=== PATIENT | female | born 1985 | race Caucasian/White ===

== ENCOUNTER 2017-06-12 10:05 | Emergency (ER) | payer SELFPAY ==
[2017-06-12 10:24] VITALS: BMI 26.4
[2017-06-12 10:26] VITALS: RESP 18
[2017-06-12 11:07] VITALS: PULSE 80
--- NOTE | 2017-06-12 12:18 | C.PDOC ---
History Of Present Illness 32 y/o French female presents to the ER complaining of left arm and finger pain which has been present for the past year. Patient reports that the pain radiates to her left shoulder and neck. Patient states that the pain is constant and the pain increases with movement. She reports that she does not carry a heavy bag on her left shoulder. Patient denies any fever, chills, nausea , vomiting, and trauma.Patient states that she was seen in [facility] last year and they performed surgery on her left wrist for "venous obstruction." Patient reports that she did not take any medications and the symptoms never resolved.Of note, patient reports that she is no longer . Time Seen by Provider: 06/12/17 10:48 Chief Complaint (Nursing): Chest Pain History Per: Patient History/Exam Limitations: no limitations Onset/Duration Of Symptoms: Days Current Symptoms Are (Timing): Still Present Severity: Moderate Past Medical History Reviewed: Historical Data, Nursing Documentation, Vital Signs Vital Signs: Last Vital Signs Temp 98.1 F 06/12/17 13:28 Pulse 80 06/12/17 13:28 Resp 18 06/12/17 13:28 BP 109/79 06/12/17 13:28 Pulse Ox 99 06/12/17 14:46 - Medical History PMH: Hypercholesterolemia Surgical History: No Surg Hx Family History: States: No Known Family Hx - Social History Hx Alcohol Use: No Hx Substance Use: No - Immunization History Hx Tetanus Toxoid Vaccination: No Hx Influenza Vaccination: No Hx Pneumococcal Vaccination: No Review Of Systems Except As Marked, All Systems Reviewed And Found Negative. Constitutional: Negative for: Fever, Chills Gastrointestinal: Negative for: Nausea, Vomiting, Diarrhea Musculoskeletal: Positive for: Arm Pain (left arm pain), Hand Pain (fingers of left hand) Physical Exam - Physical Exam Appears: Non-toxic, No Acute Distress, Other (awake,alert, in physical pain) Skin: Normal Color, Warm Head: Atraumatic, Normacephalic Eye(s): bilateral: Normal Inspection, PERRL Nose: Normal Oral Mucosa: Moist Neck: Supple, Other (muscle spasm along left teapezius) Chest: Symmetrical, Other (muscle spasm in chest wall) Cardiovascular: Rhythm Regular Respiratory: Normal Breath Sounds, No Accessory Muscle Use Gastrointestinal/Abdominal: Normal Exam, Soft, No Tenderness Back: No CVA Tenderness, Muscle Spasm (muscular spasm along the trapezius muscle and medial aspect of the scapula) 1 - muscle spasm Extremity: Normal ROM, No Pedal Edema Extremity: Bilateral: Atraumatic Neurological/Psych: Oriented x3, Normal Speech, Normal Cognition, Normal Motor, Normal Sensation ED Course And Treatment ECG: Interpreted By Me, Viewed By Me ECG Rhythm: Sinus Rhythm Interpretation Of ECG: no ST elevations/ depressions Rate From EC O2 Sat by Pulse Oximetry: 99 (RA) Pulse Ox Interpretation: Normal Progress Note: Patient is feeling better. Patient's will pick her up. Medical Decision Making Medical Decision Making: Plan: --Motrin 600 mg PO --Valium 5 mg PO --Tylenol 975 mg PO Disposition Counseled Patient/Family Regarding: Diagnosis, Need For Followup, Rx Given - Disposition Referrals: [facility] at [facility] [Outside] Disposition: HOME/ ROUTINE Disposition Time: 13:03 Condition: STABLE Additional Instructions: Follow up in clinic. Take medications as indicated. Don't drive while taking Valium. You were diagnosed with muscle spasm, please follow up to determin the underlying cause. Prescriptions: diaZEpam [Valium] 5 mg PO TID #12 tab Ibuprofen [Motrin] 600 mg PO TID #15 tab Instructions: Muscle Spasm (ED) Forms: General Discharge Instructions, [facility] ([place]), Work Excuse - POA Present On Arrival: None - Clinical Impression Clinical Impression: Muscle spasm of back - Scribe Statement The provider has reviewed the documentation as recorded by the Krista Wilson Provider Attestation: All medical record entries made by the Leslieibe were at my direction and personally dictated by me. I have reviewed the chart and agree that the record accurately reflects my personal performance of the history, physical exam, medical decision making, and the department course for this patient. I have also personally directed, reviewed, and agree with the discharge instructions and disposition.
[2017-06-12 13:28] VITALS: BP 109/79; TEMP 98.1
[2017-06-12 14:42] VITALS: O2SAT 99
--- NOTE | 2017-06-14 12:15 | CARD ---
APPROVED REPORT EKG Measurement Heart [id number] <Conclusion> Normal sinus rhythm Normal ECG
== END 2017-06-12 13:28 | disposition home or self-care (01) ==
LOC: C.ER 10:05
DX: M62.830 Muscle spasm of back (principal); E78.00 Pure hypercholesterolemia, unspecified

== ENCOUNTER 2017-11-05 13:28 | Emergency (ER) | payer OTHER ==
[2017-11-05 13:29] VITALS: BMI 26.4
[2017-11-05] MEDS ORDERED: Sodium Chloride 0.9% 1,000 ML IV ONE (14:24)
[2017-11-05 15:09] LABS: SQUAMOUS EPITHIAL 8 /hpf (0-5); URINE BACTERIA RARE (<OCC); URINE BILIRUBIN NEGATIVE (NEGATIVE); URINE BLOOD NEGATIVE (NEGATIVE); URINE CLARITY Clear (Clear); URINE COLOR Straw (YELLOW); URINE GLUCOSE (UA) NORMAL (Normal); URINE LEUKOCYTE ESTERASE NEG Leu/uL (Negative); URINE PROTEIN NEGATIVE (NEGATIVE); URINE UROBILINOGEN NORMAL mg/dL (0.2-1.0)
--- NOTE | 2017-11-05 15:57 | CT ---
PROCEDURE: CT HEAD WITHOUT CONTRAST. HISTORY: seizure COMPARISON: None available. TECHNIQUE: Axial computed tomography images were obtained through the head/brain without intravenous contrast. Radiation dose: Total exam DLP = 873 mGy-cm. This CT exam was performed using one or more of the following dose reduction techniques: Automated exposure control, adjustment of the mA and/or kV according to patient size, and/or use of iterative reconstruction technique. FINDINGS: HEMORRHAGE: No intracranial hemorrhage. BRAIN: No mass effect or edema. No atrophy or chronic microvascular ischemic changes. VENTRICLES: Unremarkable. No hydrocephalus. CALVARIUM: Unremarkable. PARANASAL SINUSES: Unremarkable as visualized. No significant inflammatory changes. MASTOID AIR CELLS: Unremarkable as visualized. No inflammatory changes. OTHER FINDINGS: None. IMPRESSION: No acute intracranial abnormality. If symptoms persist, consider correlation with MRI.
[2017-11-05] MEDS ORDERED: Sodium Chloride 0.9% 1,000 ML ONE (16:04)
[2017-11-05 16:11] LABS: BASO # 0.1 K/uL (0.0-0.2); BASO % 0.8 % (0.0-2.0); EOS % 0.4 % (0.0-4.0); HEMOGLOBIN 12.2 g/dL (11.0-16.0); LYMPH # 2.4 K/uL (1.0-4.3); LYMPH % 24.4 % (20.0-40.0); MEAN CELL VOLUME 80.1 fL (81.0-99.0); MEAN CORPUSCULAR HEMOGLOBIN 27.1 pg (27.0-31.0); MEAN CORPUSCULAR HGB CONC 33.8 g/dL (33.0-37.0); MEAN PLATELET VOLUME 7.4 fL (7.2-11.7); MONO # 0.4 K/uL (0.0-0.8); MONO % 4.1 % (0.0-10.0); NEUT # 6.9 K/uL (1.8-7.0); NEUT % 70.3 % (50.0-75.0); NRBC % 0.2 % (0.0-2.0); RBC 4.52 Mil/uL (3.80-5.20); RED CELL DISTRIBUTION WIDTH 13.5 % (11.5-14.5); WHITE BLOOD COUNT 9.8 K/uL (4.8-10.8)
[2017-11-05 16:21] LABS: ALBUMIN 3.9 g/dL (3.5-5.0); ALT/SGPT 28 U/L (9-52); AST/SGOT 25 U/L (14-36); BLOOD UREA NITROGEN 14 mg/dL (7-17); CALCIUM 9.3 mg/dl (8.6-10.4); GFR AFRICAN-AMERICAN > 60; GFR NON-AFRICAN AMERICAN > 60
--- NOTE | 2017-11-05 16:43 | C.PDOC ---
History Of Present Illness 32 y/o female presents to the ER complaining of dizziness which has been present for the past 1 day. Patient reports that the dizziness is worse with movement and improved with lying still.Patient states that she has associated nausea and vomiting. Otherwise, patient denies having CP,SOB,cough, fever, and chills. Time Seen by Provider: 11/05/17 14:10 Chief Complaint (Nursing): Dizziness/Lightheaded History Per: Patient History/Exam Limitations: no limitations Onset/Duration Of Symptoms: Days Current Symptoms Are (Timing): Still Present Severity: Moderate Past Medical History Reviewed: Historical Data, Nursing Documentation, Vital Signs Vital Signs: Last Vital Signs Temp 97.4 F L 11/05/17 13:35 Pulse 70 11/05/17 13:35 Resp 20 11/05/17 13:35 BP 112/79 11/05/17 13:35 Pulse Ox 100 11/05/17 16:52 - Medical History PMH: Hypercholesterolemia Other Surgeries: Hx of surgeries Family History: States: No Known Family Hx - Social History Hx Alcohol Use: No Hx Substance Use: No - Immunization History Hx Tetanus Toxoid Vaccination: No Hx Influenza Vaccination: No Hx Pneumococcal Vaccination: No Review Of Systems Except As Marked, All Systems Reviewed And Found Negative. Constitutional: Negative for: Fever, Chills Cardiovascular: Negative for: Chest Pain Respiratory: Negative for: Cough, Shortness of Breath Gastrointestinal: Positive for: Nausea, Vomiting Neurological: Positive for: Dizziness Physical Exam - Physical Exam Appears: Non-toxic, No Acute Distress Skin: Normal Color, Warm, Dry Head: Atraumatic, Normacephalic Eye(s): bilateral: Normal Inspection Nose: Normal Oral Mucosa: Moist Neck: Supple Chest: Symmetrical Cardiovascular: Rhythm Regular Respiratory: Normal Breath Sounds, No Rales, No Rhonchi, No Wheezing Gastrointestinal/Abdominal: Normal Exam, Soft, No Tenderness, No Guarding, No Rebound Neurological/Psych: Oriented x3, Normal Speech ED Course And Treatment - Laboratory Results Result Diagrams: 11/05/17 16:02 11/05/17 15:55 Urine POC: Negative ECG: Interpreted By Me, Viewed By Me ECG Rhythm: Sinus Rhythm Interpretation Of ECG: NSR with normal intervals, normal axises, and no ST/ T wave abnormalities Rate From EC O2 Sat by Pulse Oximetry: 100 (RA) Pulse Ox Interpretation: Normal Medical Decision Making Medical Decision Making: Assessment: Dizziness Plan: --Labs --UA -- POC Urine Test --Antivert PO --Sudafed PO --Zofran IV --IV Fluids patient reevaluated at 1657 and states resolution of symptoms I will discharge home to follow up with pmd in 2 days return to ER if symptoms worsens or progress Disposition Counseled Patient/Family Regarding: Studies Performed, Diagnosis, Need For Followup, Rx Given - Disposition Referrals: [facility] at [facility] [Outside] Disposition: HOME/ ROUTINE Disposition Time: 16:58 Condition: IMPROVED Additional Instructions: follow up with your doctor or medical clinic within 2 days call to make an appointment continue medications at home as needed return to ER if symptoms worsens or progress Prescriptions: Meclizine [Meclizine*] 25 mg PO TID PRN #15 tab PRN Reason: Dizziness Ondansetron ODT [Zofran ODT] 4 mg PO TID PRN #12 odt PRN Reason: Nausea/Vomiting Instructions: Vertigo (a Type of Dizziness) Forms: [facility] ([place]), General Discharge Instructions, Work Excuse - Clinical Impression Clinical Impression: Dizziness - Scribe Statement The provider has reviewed the documentation as recorded by the Krista Wilson Provider Attestation: All medical record entries made by the Krista were at my direction and personally dictated by me. I have reviewed the chart and agree that the record accurately reflects my personal performance of the history, physical exam, medical decision making, and the department course for this patient. I have also personally directed, reviewed, and agree with the discharge instructions and disposition.
[2017-11-05 17:49] VITALS: BP 136/72; PULSE 78; RESP 18; TEMP 98; O2SAT 98
--- NOTE | 2017-11-08 12:19 | CARD ---
APPROVED REPORT EKG Measurement Heart [id number] [id number] <Conclusion> Normal sinus rhythm Normal ECG
== END 2017-11-05 17:49 | disposition home or self-care (01) ==
LOC: C.ER 13:28
DX: R42 Dizziness and giddiness (principal); E78.00 Pure hypercholesterolemia, unspecified
CPT/HCPCS: 70450; 80053; 81001; 85025; 96374; 99285; J2405; J7030

== ENCOUNTER 2018-09-30 11:06 | Outpatient (CLI) | payer OTHER | END 2018-09-30 11:07 | disposition home or self-care (01) | LOC: C.LAB 11:06 | DX: R73.01 Impaired fasting glucose (principal); E78.2 Mixed hyperlipidemia ==

== ENCOUNTER 2018-10-08 09:31 | Outpatient (CLI) | payer OTHER | END 2018-10-08 09:32 | disposition home or self-care (01) | LOC: C.USIC 09:32 ==

== ENCOUNTER 2018-10-08 10:29 | Emergency (ER) | payer OTHER ==
[2018-10-08 10:30] VITALS: BMI 26.4
[2018-10-08 10:46] VITALS: RESP 20
--- NOTE | 2018-10-08 11:11 | C.PDOC ---
History Of Present Illness 33 year old female presents to the ED complaining of LLQ pain associated with vomiting for one day. States it feels like "something is moving". Denies any fever, chills, diarrhea, constipation, urinary symptoms, back pain, shortness of breath, or chest pain. Reports she had a normal bowel movement this morning. Time Seen by Provider: 10/08/18 10:58 Chief Complaint (Nursing): Abdominal Pain History Per: Patient History/Exam Limitations: no limitations Onset/Duration Of Symptoms: Days Current Symptoms Are (Timing): Still Present Location Of Pain/Discomfort: LLQ Quality Of Discomfort: "Pain", Other ("Something is moving" ) Associated Symptoms: Vomiting. denies: Fever, Chills, Diarrhea, Back Pain, [place] Pain, Urinary Symptoms Past Medical History Reviewed: Historical Data, Nursing Documentation, Vital Signs Vital Signs: Last Vital Signs Temp 97.8 F 10/08/18 10:41 Pulse 81 10/08/18 10:41 Resp 20 10/08/18 10:41 BP 117/82 10/08/18 10:41 Pulse Ox 98 10/08/18 10:41 Primary Care Provider: FAMILY PROVIDER,NO - Medical History PMH: Hypercholesterolemia Other Surgeries: Hx of surgeries Family History: States: No Known Family Hx - Social History Hx Alcohol Use: No Hx Substance Use: No - Immunization History Hx Tetanus Toxoid Vaccination: No Hx Influenza Vaccination: No Hx Pneumococcal Vaccination: No Review Of Systems Constitutional: Negative for: Fever, Chills Cardiovascular: Negative for: Chest Pain Respiratory: Negative for: Cough, Shortness of Breath Gastrointestinal: Positive for: Vomiting, Abdominal Pain. Negative for: Diarrhea, Constipation Genitourinary: Negative for: Dysuria, Hematuria Musculoskeletal: Negative for: Back Pain Physical Exam - Physical Exam Appears: Non-toxic, No Acute Distress Skin: Warm, Dry, No Rash Head: Normacephalic Eye(s): bilateral: Normal Inspection, PERRL, EOMI Nose: Normal Oral Mucosa: Moist Neck: Supple Chest: Symmetrical Cardiovascular: Rhythm Regular Respiratory: Normal Breath Sounds, No Rales, No Rhonchi, No Wheezing Gastrointestinal/Abdominal: Soft, Tenderness (LLQ), No Distention, Guarding, No Rebound Back: No CVA Tenderness Neurological/Psych: Oriented x3, Normal Speech Gait: Steady ED Course And Treatment - Laboratory Results Result Diagrams: 10/08/18 11:37 10/08/18 11:37 O2 Sat by Pulse Oximetry: 98 (RA) Pulse Ox Interpretation: Normal - CT Scan/US CT abd/pel Other Rad Studies (CT/US): Read By Radiologist, Radiology Report Reviewed CT/US Interpretation: Accession No. : [id number]. Patient Name / ID : VINICIO GUPTA / [id number]. Exam Date : 10/08/2018 13:01:25 ( Approved ). Study Comment : Sex / Age : F / 33Y. Creator : Bruna Villalta. Dictator : Grayson Myers MD. Clarity Developer : Patient Care Assistant : Grayson Myers MD. Approver2 : Report Date : 10/08/2018 13:36:41. My Comment : . Date of service: 10/08/2018. PROCEDURE: CT Abdomen and Pelvis with contrast. HISTORY: lower abd pain, L>R, vomiting. COMPARISON: Not available. TECHNIQUE: Contrast dose: 100 mL Visipaque 320. Radiation dose: Total exam DLP = 651.24 mGy-cm. This CT exam was performed using one or more of the following dose reduction techniques: Automated exposure control, adjustment of the mA and/or kV according to patient size, and/or use of iterative reconstruction technique. FINDINGS: LOWER THORAX: Unremarkable. LIVER: Unremarkable. No gross lesion or ductal dilatation. GALLBLADDER AND BILE DUCTS: Unremarkable. PANCREAS: Unremarkable. No gross lesion or ductal dilatation. SPLEEN: Unremarkable. ADRENALS: Unremarkable. No mass. KIDNEYS AND URETERS: Unremarkable. No hydronephrosis. No solid mass. VASCULATURE: Unremarkable. No aortic aneurysm. No aortic atherosclerotic calcification or mural plaque present. BOWEL: There is circumferential mural thickening of the transverse colon consistent with nonspecific colitis. The remainder of the colon is unremarkable in appearance. There is no evidence of diverticulitis. APPENDIX: The appendix is identified. PERITONEUM: Unremarkable. No free fluid. No free air. LYMPH NODES: Unremarkable. No enlarged lymph nodes. BLADDER: Unremarkable bladder. REPRODUCTIVE: Bicornuate uterus. Right ovarian cyst, 3.7 cm. Recommend further evaluation with transvaginal pelvic ultrasound. BONES: No acute fracture. OTHER FINDINGS: None. IMPRESSION: Circumferential mural thickening of the transverse colon suspicious for nonspecific colitis. Consider infectious etiology. Right ovarian cyst, 3.7 cm. Recommend correlation with transvaginal pelvic ultrasound. Incidental bicornuate uterus. Progress Note: CT abd/pel ordered. Urine and blood collected and sent to the lab for analysis. Patient treated with IV fluids. Cipro and Flagyl started. Disposition - Disposition Referrals: Catie Guardado MD [Staff Provider] - Disposition: HOME/ ROUTINE Disposition Time: 14:57 Condition: STABLE Additional Instructions: Follow up with PMD/Clinic within 2-3 days. Return to ED if feel worse. Prescriptions: Dicyclomine [Bentyl] 20 mg PO TID #30 tab Ciprofloxacin [Cipro] 1 tab PO BID #14 tab metroNIDAZOLE [Flagyl] 500 mg PO Q8 #21 tab Ondansetron ODT [Zofran ODT] 4 mg PO Q6 #20 odt Instructions: Colitis Forms: [facility] ([place]), Work Excuse - Clinical Impression Clinical Impression: Abdominal pain, Vomiting - PA / CLINICAL PROGRAM MANAGER / Resident Statement MD/DO has reviewed & agrees with the documentation as recorded. - Scribe Statement The provider has reviewed the documentation as recorded by the Leslieiblul Weston All medical record entries made by the Leslieiblul were at my direction and personally dictated by me. I have reviewed the chart and agree that the record accurately reflects my personal performance of the history, physical exam, medical decision making, and the department course for this patient. I have also personally directed, reviewed, and agree with the discharge instructions and disposition.
[2018-10-08] MEDS ORDERED: Sodium Chloride 0.9% 1,000 ML IV STA (11:23)
[2018-10-08] MEDS ORDERED: Iohexol 240 (50 ml) PO STA (11:23)
[2018-10-08 11:43] LABS: BASO # 0.1 K/uL (0.0-0.2); BASO % 0.9 % (0.0-2.0); EOS # 0.1 K/uL (0.0-0.7); EOS % 0.6 % (0.0-4.0); HEMOGLOBIN 12.4 g/dL (11.0-16.0); LYMPH # 2.4 K/uL (1.0-4.3); LYMPH % 26.9 % (20.0-40.0); MEAN CORPUSCULAR HEMOGLOBIN 27.9 pg (27.0-31.0); MEAN CORPUSCULAR HGB CONC 34.5 g/dL (33.0-37.0); MEAN PLATELET VOLUME 7.6 fL (7.2-11.7); MONO # 0.5 K/uL (0.0-0.8); NEUT % 66.6 % (50.0-75.0); NRBC % 0.1 % (0.0-2.0); RBC 4.44 Mil/uL (3.80-5.20); RED CELL DISTRIBUTION WIDTH 13.9 % (11.5-14.5); WHITE BLOOD COUNT 9.1 K/uL (4.8-10.8)
[2018-10-08 11:45] LABS: HCG,QUALITATIVE URINE NEGATIVE (NEGATIVE)
[2018-10-08] MEDS ORDERED: Iohexol 240 (50 ml) ONE (11:45)
[2018-10-08] MEDS ORDERED: Sodium Chloride 0.9% 1,000 ML ONE (11:45)
[2018-10-08 11:47] LABS: SQUAMOUS EPITHIAL 7 /hpf (0-5); URINE BILIRUBIN NEGATIVE (NEGATIVE); URINE BLOOD 1+ (NEGATIVE); URINE CLARITY Hazy (Clear); URINE COLOR Red (YELLOW); URINE GLUCOSE (UA) NORMAL (Normal); URINE LEUKOCYTE ESTERASE NEG Leu/uL (Negative); URINE PROTEIN NEGATIVE (NEGATIVE); URINE UROBILINOGEN NORMAL mg/dL (0.2-1.0)
[2018-10-08 11:52] LABS: PARTIAL THROMBOPLASTIN TIME 32.3 SECONDS (21-34); PROTHROMBIN TIME 11.1 SECONDS (9.7-12.2)
[2018-10-08 11:55] LABS: ALB/GLOB RATIO 1.3 (1.0-2.1); ALBUMIN 4.3 g/dL (3.5-5.0); ALT/SGPT 42 U/L (9-52); AST/SGOT 33 U/L (14-36); BLOOD UREA NITROGEN 15 mg/dL (7-17); CALCIUM 9.4 mg/dl (8.6-10.4); GFR NON-AFRICAN AMERICAN > 60; LIPASE 45 U/L (23-300)
[2018-10-08] MEDS ORDERED: Iodixanol 320 MG/ML 100 ML BOTTLE IV ONE (13:00)
--- NOTE | 2018-10-08 14:07 | CT ---
Date of service: 10/08/2018 PROCEDURE: CT Abdomen and Pelvis with contrast HISTORY: lower abd pain, L>R, vomiting COMPARISON: Not available TECHNIQUE: Contrast dose: 100 mL Visipaque 320 Radiation dose: Total exam DLP = 651.24 mGy-cm. This CT exam was performed using one or more of the following dose reduction techniques: Automated exposure control, adjustment of the mA and/or kV according to patient size, and/or use of iterative reconstruction technique. FINDINGS: LOWER THORAX: Unremarkable. LIVER: Unremarkable. No gross lesion or ductal dilatation. GALLBLADDER AND BILE DUCTS: Unremarkable. PANCREAS: Unremarkable. No gross lesion or ductal dilatation. SPLEEN: Unremarkable. ADRENALS: Unremarkable. No mass. KIDNEYS AND URETERS: Unremarkable. No hydronephrosis. No solid mass. VASCULATURE: Unremarkable. No aortic aneurysm. No aortic atherosclerotic calcification or mural plaque present. BOWEL: There is circumferential mural thickening of the transverse colon consistent with nonspecific colitis. The remainder of the colon is unremarkable in appearance. There is no evidence of diverticulitis. APPENDIX: The appendix is identified PERITONEUM: Unremarkable. No free fluid. No free air. LYMPH NODES: Unremarkable. No enlarged lymph nodes. BLADDER: Unremarkable bladder REPRODUCTIVE: Bicornuate uterus. Right ovarian cyst, 3.7 cm. Recommend further evaluation with transvaginal pelvic ultrasound. BONES: No acute fracture. OTHER FINDINGS: None. IMPRESSION: Circumferential mural thickening of the transverse colon suspicious for nonspecific colitis. Consider infectious etiology. Right ovarian cyst, 3.7 cm. Recommend correlation with transvaginal pelvic ultrasound. Incidental bicornuate uterus.
[2018-10-08 15:22] VITALS: BP 117/78; PULSE 79; TEMP 98.5
[2018-10-08 16:21] VITALS: O2SAT 98
== END 2018-10-08 16:06 | disposition home or self-care (01) ==
LOC: C.ER 10:29
DX: R10.32 Left lower quadrant pain (principal); R11.10 Vomiting, unspecified
CPT/HCPCS: 74177; 80053; 81001; 83690; 84703; 85025; 85610; 85730; 87086; 87181; 96360; 99285; J7030; Q9966; Q9967